=== PATIENT | male | born 1935 | race Hispanic/Latino ===

== ENCOUNTER → 2017-11-20 | Outpatient (CLI) | payer OTHER ==
[~2017-11-20] MED LIST: CHOL200012 PO; CYAN10009 PO; DOXA8TAB81 PO; DULO60CA63 PO; FOLI1TAB15 PO; GABA-529 PO; IRON150C5 PO; ISOS60TA4 PO; LOSA100T20 PO; METO100T14 PO; PANT40TA25 PO; PRAV40TA PO; RIVA20TA PO; SAXA1TBM2 PO
== END | disposition home or self-care (01) ==
LOC: SHCH 13:24
PROVIDERS: ATTEND Internal Medicine Cardiovascular Disease
DX: I87.2 Venous insufficiency (chronic) (peripheral) (principal); I73.9 Peripheral vascular disease, unspecified
CPT/HCPCS: 93925; 93970

== ENCOUNTER → 2018-08-11 | Outpatient (CLI) | payer OTHER ==
[~2018-08-11] MED LIST changes: -LOSA100T20 PO; +LOSA100T58 PO
== END | disposition home or self-care (01) ==
LOC: OIH 14:20
PROVIDERS: ATTEND Family Medicine
DX: M47.816 Spondylosis without myelopathy or radiculopathy, lumbar region (principal); M41.86 Other forms of scoliosis, lumbar region; M25.78 Osteophyte, vertebrae
CPT/HCPCS: 72100

== ENCOUNTER → 2018-08-25 | Outpatient (CLI) | payer OTHER | END | disposition home or self-care (01) | LOC: RAH 09:18 | PROVIDERS: ATTEND Family Medicine | DX: N32.89 Other specified disorders of bladder (principal); Q63.1 Lobulated, fused and horseshoe kidney; I12.9 Hypertensive chronic kidney disease with stage 1 through stage 4 chronic kidney disease, or unspecified chronic kidney disease; E11.22 Type 2 diabetes mellitus with diabetic chronic kidney disease; N18.3 Chronic kidney disease, stage 3 (moderate) | CPT/HCPCS: 76770 ==

== ENCOUNTER → 2019-01-18 | Outpatient (CLI) | payer OTHER ==
[~2019-01-18] MED LIST changes: +CYAN-52 PO; -CYAN10009 PO; -DULO60CA63 PO; +DULO60CA64 PO
== END | disposition home or self-care (01) ==
LOC: SHCH 13:42
PROVIDERS: ATTEND Internal Medicine Cardiovascular Disease
DX: Z09 Encounter for follow-up examination after completed treatment for conditions other than malignant neoplasm (principal); I82.432 Acute embolism and thrombosis of left popliteal vein; I82.411 Acute embolism and thrombosis of right femoral vein
CPT/HCPCS: 93971

== ENCOUNTER → 2019-01-25 | Outpatient (CLI) | payer OTHER | END | disposition home or self-care (01) | LOC: SHCH 12:54 | PROVIDERS: ATTEND Internal Medicine Cardiovascular Disease | DX: I82.812 Embolism and thrombosis of superficial veins of left lower extremity (principal) | CPT/HCPCS: 93971 ==

== ENCOUNTER 2020-02-07 15:37 | Inpatient (IN) | payer OTHER ==
[~2020-02-07] VITALS: Ht 170.2 cm; Wt 89.9 kg
[~2020-02-07 15:37] MED LIST changes: -PANT40TA25 PO; +PANT40TA54 PO
[2020-02-07 16:09] LABS: BASOPHILS % (AUTO) 0.6 % (0.0-5.0); EOSINOPHILS % (AUTO) 2.3 % (0.0-8.0); HEMATOCRIT 35.5 % (42-54); LYMPHOCYTES % (AUTO) 18.9 % (21.0-51.0); MEAN CORPUSCULAR HEMOGLOBIN 32.3 pg (27.0-33.0); MEAN CORPUSCULAR HGB CONC 33.8 g/dL (32.0-36.0); MEAN CORPUSCULAR VOLUME 95.7 fL (79-99); MONOCYTES % (AUTO) 9.5 % (3.0-13.0); NEUTROPHILS % (AUTO) 68.2 % (40.0-77.0); PLATELET COUNT (AUTO) 158 K/uL (130-400); RED BLOOD CELL COUNT(AUTO) 3.71 MIL/uL (4.50-6.20); RED CELL DISTRIBUTION WIDTH 12.8 % (11.0-15.5); WHITE BLOOD COUNT (AUTO) 10.1 K/uL (4.8-10.8)
[2020-02-07 16:15] LABS: INR 1.38 (0.85-1.15); PARTIAL THROMBOPLASTIN TIME 32.4 SEC (26.3-35.5); PROTHROMBIN TIME 14.7 SEC (9.6-11.6)
[2020-02-07 16:49] LABS: CREATININE 1.5 mg/dL (0.5-1.5); POTASSIUM 4.1 mmol/L (3.5-5.1)
[2020-02-07 16:53] LABS: ALBUMIN 3.4 g/dL (3.5-5.0); BILIRUBIN,TOTAL 0.6 mg/dL (0.2-1.0); CRP QUANTITATIVE 10.3 mg/L (0.00-9.0); MAGNESIUM 1.5 mg/dL (1.80-2.40)
[2020-02-07] MEDS ORDERED: ACETAMINOPHEN 325 MG TAB PO PRN ×2 (19:30)
[2020-02-07] MEDS ORDERED: ONDANSETRON HCL 4 MG/2 ML VIAL IV PRN (19:30)
[2020-02-07] MEDS ORDERED: LACTULOSE 20 GM/30 ML UDCUP PO PRN (19:30)
[2020-02-07 20:24] LABS: HEMOGLOBIN A1C 5.9 % (4.0-6.0)
[2020-02-07 20:35] LABS: THYROID STIMULATING HORMONE 1.9 uIU/mL (0.36-3.74)
[2020-02-07] MEDS: INSULIN HUMULIN R 100 UNIT/ML 3ML SQ SCH (21:00)
[2020-02-07] MEDS ORDERED: FAMOTIDINE 20MG TAB 20 MG TAB ONE (22:13)
[2020-02-07 22:50] VITALS: BP 190/86
[2020-02-07 23:19] LABS: APPEARANCE,URINE Clear (CLEAR); BILIRUBIN,URINE Negative (NEGATIVE); COLOR,URINE Yellow (YELLOW); GLUCOSE, URINE (UA) Negative (NEGATIVE); KETONES,URINE Negative (NEGATIVE); LEUKOCYTE ESTERASE ,URINE Negative (NEGATIVE); NITRATE,URINE Negative (NEGATIVE); OCCULT BLOOD,URINE Negative (NEGATIVE); PH,URINE 5.5 (5.0-8.0); PROTEIN,URINE POS 1+ mg/dL (NEGATIVE); UROBILINOGEN,URINE 0.2 mg/dL (0.2-1.0)
[2020-02-07] MEDS ORDERED: MULT-1258 PO (23:26)
[2020-02-07] MEDS ORDERED: CHOL100044 PO (23:26)
[2020-02-07] MEDS ORDERED: ACET325C6 PO (23:26)
[2020-02-07] MEDS ORDERED: LINA1TAB5 PO (23:27)
[2020-02-07 23:35] LABS: RBC,URINE 0-1 /HPF (0-1); WBC,URINE 0-1 /HPF (0-1)
[2020-02-07 23:36] LABS: BACTERIA,URINE None Seen /HPF (None Seen)
[2020-02-08] VITALS (9 sets, daily range): BP systolic 118–197; BP diastolic 52–89
[2020-02-08] MEDS ORDERED: LOSARTAN 100 MG TABLET ONE (04:16)
[2020-02-08] MEDS: LOSARTAN 100 MG TABLET PO SCH (04:17)
[2020-02-08] MEDS: INSULIN HUMULIN R 100 UNIT/ML 3ML SQ SCH ×4 (05:32→20:39)
[2020-02-08] MEDS: FAMOTIDINE 20MG TAB 20 MG TAB PO SCH (08:27)
[2020-02-08] MEDS: ISOSORBIDE MONO 60 MG TAB.SR PO SCH (08:28)
[2020-02-08] MEDS: RIVAROXABAN 20 MG TABLET PO SCH (08:28)
[2020-02-08] MEDS: METOPROLOL TARTRATE 50 MG TAB PO SCH ×2 (08:28→21:48)
[2020-02-08] MEDS: DOXAZOSIN MESYLATE 2 MG TABLET PO SCH (08:28)
[2020-02-08] MEDS: ASPIRIN 81MG TAB.CHEW PO SCH (08:29)
[2020-02-08] MEDS: DULOXETINE HCL 30 MG CAP PO SCH (08:29)
[2020-02-08] MEDS: GABAPENTIN 100 MG CAPSULE PO SCH ×3 (08:29→21:47)
[2020-02-08] MEDS: **HM** PRAVASTATIN 40MG PO SCH (08:30)
[2020-02-08] MEDS: VIT D3 PO SCH (08:30)
[2020-02-08] MEDS ORDERED: ENOXAPARIN SODIUM 30 MG/0.3 ML SQ SCH (09:00)
--- NOTE | 2020-02-08 11:42 | NUR ---
DCP CM met with pt and spouse in room discussed dc plans. Pt is independent prior to admission, lives at home with spous, daughter lives close by. Denies any equipment/services. Feels safe to go back home, spouse and daughter able to assist with transportation and needs as necessary. DC plan to home once stable. CM to continue to follow up. Addendum: 02/08/20 at 1144 by KIMBERLY RASHEED LVN CM Amended: Links added.
[2020-02-08] MEDS: MAGNESIUM 2GM PREMIX 50ML 50 ML IV PRN (14:10)
[2020-02-08] MEDS ORDERED: HYDRALAZINE HCL 25 MG TABLET PO SCH (16:00)
--- NOTE | 2020-02-08 16:06 | NUR ---
2119 patient signed IM Letter, I faxed IM Letter to [phone] and placed in chart under consent tab
[2020-02-08] MEDS: SODIUM CHLORIDE 0.9% 1000ML 1,000 ML IV SCH (21:48)
[2020-02-09] VITALS (17 sets, daily range): BP systolic 104–206; BP diastolic 44–98
--- NOTE | 2020-02-09 02:36 | NUR ---
0204: Patient asleep, dye lab technician. Jessenia called stated patient's heart rate dropping to the 30-40, not sustaining. She stated it also looks like the patient has converted from a 1 st degree block to a 2nd degree block Type II.I checked on patient, checked apical pulse while asleep for a complete minute at 50. Went ahead and paged Paulo BATES via answering service. 0205: Steven BATES returned the call informed her of above, stated to let the rolled gold plater know in the morning and for the critical care doctor to be consulted right now. Orders to change out the telemetry box has not been working. 0230: Vital signs lying 141/52, hr 59, 02 sat at 91 room air, sitting 174/74, hr 62, 02 sat at 95%, and standing up 172/75, hr of 65 02 sat at 96 % room air. Patient remains without any chest pain, dizziness, no fainting spells. Patient denies any discomfort. Jessenia dye lab technician called, stated patient is still having some 2nd degree Type II block. 0230: Paulo BATES called and informed of above, orders received to transfer to ICU and consult critical care. ERICK locomotive observer made aware, she stated she would get to me with a room. Patient remains asymptomatic. Patient made aware of changes, informed would be transferred to ICU. Patient verbalized understanding.
--- NOTE | 2020-02-09 04:46 | NUR ---
0440: Patient continued asymptomatic, checked on frequently, b/p at this time at 100/51, hr at 63 and 02 sat at 94%. Patient easily arousal, denies any discomfort. No distress noted, skin warm dry to touch, no change in assessment since beginning of shift. Telma RN in ICU called report after receiving room number from Gem [facility]. Telma RN given reason for patient's admission, how his reading went from 1 st degree block to 2nd degree type II block. Last vital signs given, informed her would be transferring him now, room 220. Patient transferred via bed, no complaints offered. 0445: I called patient's daughter Meredith at [phone], no response, so left a message to please call back and my work cell number given.
--- NOTE | 2020-02-09 05:00 | NUR ---
Received from room 403 due to decreased HR in the 30's and 40's. Patient currently Oriented X 4. HR 68 in 1st degree block. No c/o chest pain, SOB, or dizziness voiced at this time. B/P elevated at this time with systolic BPs in 200's. Patient states "I am just confused I was doing okay and now I am here." Patient appears anxious at this time. Respiration even and unlaored. No acute distress noted. Will contiune to monitor closely. Addendum: 02/09/20 at 0540 by KRISTINA TODD RN RN Amended: Links added.
[2020-02-09] MEDS: INSULIN HUMULIN R 100 UNIT/ML 3ML SQ SCH ×4 (06:20→21:29)
[2020-02-09 06:25] LABS: BASOPHILS % (AUTO) 0.3 % (0.0-5.0); EOSINOPHILS % (AUTO) 3.4 % (0.0-8.0); HEMATOCRIT 37.4 % (42-54); LYMPHOCYTES % (AUTO) 19.5 % (21.0-51.0); MEAN CORPUSCULAR HEMOGLOBIN 31.4 pg (27.0-33.0); MEAN CORPUSCULAR HGB CONC 33.2 g/dL (32.0-36.0); MEAN CORPUSCULAR VOLUME 94.7 fL (79-99); MONOCYTES % (AUTO) 9.7 % (3.0-13.0); NEUTROPHILS % (AUTO) 66.7 % (40.0-77.0); PLATELET COUNT (AUTO) 156 K/uL (130-400); RED BLOOD CELL COUNT(AUTO) 3.95 MIL/uL (4.50-6.20); RED CELL DISTRIBUTION WIDTH 12.8 % (11.0-15.5); WHITE BLOOD COUNT (AUTO) 9.1 K/uL (4.8-10.8)
[2020-02-09 06:32] LABS: CREATININE 1.2 mg/dL (0.5-1.5); MAGNESIUM 1.7 mg/dL (1.80-2.40); POTASSIUM 3.7 mmol/L (3.5-5.1)
[2020-02-09] MEDS: MAGNESIUM 2GM PREMIX 50ML 50 ML IV PRN (07:06)
[2020-02-09] MEDS: RIVAROXABAN 20 MG TABLET PO SCH (07:15)
[2020-02-09] MEDS: ISOSORBIDE MONO 60 MG TAB.SR PO SCH (07:15)
[2020-02-09] MEDS: GABAPENTIN 100 MG CAPSULE PO SCH ×3 (07:16→21:26)
[2020-02-09] MEDS: DOXAZOSIN MESYLATE 2 MG TABLET PO SCH (07:16)
[2020-02-09] MEDS: ASPIRIN 81MG TAB.CHEW PO SCH (07:17)
[2020-02-09] MEDS: DULOXETINE HCL 30 MG CAP PO SCH (07:17)
[2020-02-09] MEDS: LOSARTAN 100 MG TABLET PO SCH (07:17)
[2020-02-09] MEDS: FAMOTIDINE 20MG TAB 20 MG TAB PO SCH (07:19)
[2020-02-09] MEDS: METOPROLOL TARTRATE 50 MG TAB PO SCH (07:46)
[2020-02-09] MEDS: AMLODIPINE BESYLATE 5 MG TAB PO SCH (08:32)
[2020-02-09] MEDS: VIT D3 PO SCH (09:00)
[2020-02-09] MEDS: **HM** PRAVASTATIN 40MG PO SCH (09:00)
[2020-02-09] MEDS ORDERED: MAGNESIUM 2GM PREMIX 50ML 50 ML IV ONE (09:00)
[2020-02-09] MEDS ORDERED: POTASSIUM CHLORIDE 10MEQ/100ML 10 MEQ/100 ML ML IV SCH (09:00)
[2020-02-09] MEDS ORDERED: POTASSIUM CHLORIDE 10MEQ/100ML 100 ML IV SCH (09:15)
[2020-02-09] MEDS ORDERED: MAGNESIUM 2GM PREMIX 50ML 50 ML IV SCH (09:15)
[2020-02-09] MEDS: HYDRALAZINE HCL 25 MG TABLET PO SCH ×3 (09:50→21:26)
[2020-02-09] MEDS: HYDROCHLOROTHIAZIDE 25 MG TABLET PO SCH (09:51)
[2020-02-09] MEDS: POTASSIUM CHLORIDE 10% ELIXIR 20 MEQ/15 ML UDCUP PO SCH (09:51)
[2020-02-09] MEDS: MAGNESIUM CHLORIDE 70 MG TABLET.SA PO SCH (09:51)
[2020-02-09] MEDS: SODIUM CHLORIDE 0.9% 1000ML 1,000 ML IV SCH (10:20)
[2020-02-09] MEDS: ENOXAPARIN SODIUM 100 MG/1 ML SQ SCH (14:00)
--- NOTE | 2020-02-09 18:45 | NUR ---
REPORT RECEIVED 4047 RECEIVED REPORT PATIENT ALERT AND ORIENTATED X 4 , TRANSFERRED TO ICU FOR 1ST DEGREE BLOCK DEGREE BLOCK A1C 5.9, BLOOD SUGARS AC & HS K+ 3.7 REPLACED TODAY, MAG 1.7 REPLACEMENT GIVEN TODAY, LBM 02/09/20, VOID BY URINAL , TELEMETRY, 18 G TO R F/A AND 20 G TO LEFT HAND INTACT AND PATENT, CAME TO HOSPITAL FOR SYNCOPE , ORDERS FOR ORTHOSTATIC VS EVERY SHIFT, CC DIET , PATINE IN ROOM AT BEDSIDE
[2020-02-09] MEDS: METOPROLOL TARTRATE 25 MG TAB PO SCH (21:25)
[2020-02-10 03:22] VITALS: BP 169/70
[2020-02-10 03:33] VITALS: BP 164/79
[2020-02-10 03:34] VITALS: BP 164/72
[2020-02-10 05:18] LABS: BASOPHILS % (AUTO) 0.5 % (0.0-5.0); EOSINOPHILS % (AUTO) 4.1 % (0.0-8.0); HEMATOCRIT 36.6 % (42-54); LYMPHOCYTES % (AUTO) 28.1 % (21.0-51.0); MEAN CORPUSCULAR HGB CONC 33.3 g/dL (32.0-36.0); MEAN CORPUSCULAR VOLUME 96.1 fL (79-99); MONOCYTES % (AUTO) 12.9 % (3.0-13.0); NEUTROPHILS % (AUTO) 54.1 % (40.0-77.0); PLATELET COUNT (AUTO) 156 K/uL (130-400); RED BLOOD CELL COUNT(AUTO) 3.81 MIL/uL (4.50-6.20); RED CELL DISTRIBUTION WIDTH 13.1 % (11.0-15.5); WHITE BLOOD COUNT (AUTO) 8.6 K/uL (4.8-10.8)
[2020-02-10] MEDS: INSULIN HUMULIN R 100 UNIT/ML 3ML SQ SCH ×2 (05:34→10:59)
[2020-02-10 05:40] LABS: ALBUMIN 3.3 g/dL (3.5-5.0); BILIRUBIN,TOTAL 0.7 mg/dL (0.2-1.0); CREATININE 1.4 mg/dL (0.5-1.5); MAGNESIUM 2.4 mg/dL (1.80-2.40); PHOSPHORUS 3.8 mg/dL (2.5-4.9); POTASSIUM 4.2 mmol/L (3.5-5.1); TOTAL PROTEIN, SERUM 6.9 g/dL (6.0-8.3)
[2020-02-10 07:54] VITALS: BP 183/71
[2020-02-10] MEDS: DOXAZOSIN MESYLATE 2 MG TABLET PO SCH (08:05)
[2020-02-10] MEDS: HYDROCHLOROTHIAZIDE 25 MG TABLET PO SCH (08:05)
[2020-02-10] MEDS: METOPROLOL TARTRATE 25 MG TAB PO SCH (08:05)
[2020-02-10] MEDS: AMLODIPINE BESYLATE 5 MG TAB PO SCH (08:05)
[2020-02-10] MEDS: LOSARTAN 100 MG TABLET PO SCH (08:12)
[2020-02-10] MEDS: HYDRALAZINE HCL 25 MG TABLET PO SCH ×2 (08:13→13:31)
[2020-02-10] MEDS: ISOSORBIDE MONO 60 MG TAB.SR PO SCH (08:13)
--- NOTE | 2020-02-10 08:15 | NUR ---
AM ASSESSMENT PT LAYING IN BED, WATCHING TV. A/O X 3. NO SOB. NO DISTRESS NOTED. DENIES CHEST PAIN OR DISCOMFORT. DENIES PALPITATIONS. TELE: 1sr DEGREE. DENIES N/V AND/OR DIARRHEA. NPO STATUS REINFORCED. PT TO HAVE JENA SCAN TODAY. UP W/ASSISTANCE. INSTRUCTED TO CALL FOR ASSISTANCE. CALL DEDE W/IN REACH.
[2020-02-10 09:30] VITALS: BP 147/67
[2020-02-10] MEDS ORDERED: REGADENOSON 0.4 MG/5 ML PF SYG IVP SCH (11:15)
[2020-02-10] MEDS: ENOXAPARIN SODIUM 100 MG/1 ML SQ SCH (13:07)
[2020-02-10] MEDS: ASPIRIN 81MG TAB.CHEW PO SCH (13:12)
[2020-02-10] MEDS: DULOXETINE HCL 30 MG CAP PO SCH (13:12)
[2020-02-10] MEDS: GABAPENTIN 100 MG CAPSULE PO SCH ×2 (13:12→13:35)
[2020-02-10] MEDS: FAMOTIDINE 20MG TAB 20 MG TAB PO SCH (13:13)
[2020-02-10] MEDS: MAGNESIUM CHLORIDE 70 MG TABLET.SA PO SCH (13:13)
[2020-02-10] MEDS: POTASSIUM CHLORIDE 10% ELIXIR 20 MEQ/15 ML UDCUP PO SCH (13:14)
[2020-02-10] MEDS: VIT D3 PO SCH (13:15)
[2020-02-10] MEDS: **HM** PRAVASTATIN 40MG PO SCH (13:15)
[2020-02-10 15:21] VITALS: BP 133/56
--- NOTE | 2020-02-10 16:18 | NUR ---
MD VISIT DR PATRICIA ISAACS IN TO SEE PT. PT & SPOUSE UPDATED ON PT'S JENA SCAN RESULTS & CARDIOLOGY'S PLAN OF CARE.
--- NOTE | 2020-02-10 16:26 | NUR ---
MD MISSAEL LEMUS REAL ESTATE LEGAL ASSISTANT NOTIFIED, PER DR PATRICIA BELLA SCAN NORMAL & MAY DISCHARGE PT HOME TODAY. PT'S HOME DOSE OF METOPROLOL DECREASED TO50 MG PO BID, PRESCRIPTION WRITTEN BY DR PATRICIA ISAACS. PT TO F/U IN [facility].
--- NOTE | 2020-02-10 17:50 | NUR ---
DISCHARGE VERBAL & WRITTEN DISCHARGE INSTRUCTIONS REVIEWED & GIVEN TO PT & PT'S SPOUSE. QUESTIONS ENCOURAGED CLARIFIED. PROPER CARE & MGT OF SYNCOPE REVIEWED. DOSING CHANGE IN MEDICATION REVIEWED. PRESCRIPTION GIVEN TO PT; SIGNED COPY PLACED IN CHART. PT INFORMED [facility] TO NOTIFY PT WHEN TO [employer]CE[employer] FREIGHT MANAGER HOLTER MONITOR FROM OFFICE [facility]. TELE TEN REMOVED. IV X 2 DC'D @ THIS TIME. PT & SPOUSE TO GATHER PERSONAL BELONGINGS. WILL NOTIFY STAFF WHEN READY TO BE TAKEN TO PRIVATE VEHICLE.
--- NOTE | 2020-02-10 18:15 | NUR ---
DISCHARGE PT TAKEN TO PRIVATE VEHICLE VIA WC BY Qamar WOODS PCP, ACCOMPANIED BY SPOUSE. NO DISTRESS NOTED.
--- NOTE | 2020-02-11 13:09 | NUR ---
TRANSITIONAL CARE - POST-DISCHARGE NOTE Spoke to Mr Sheth at phone number listed on file. As per patient, he states he is doing "good." He denies, any syncopal episodes, SOB, CP, N/V/D, fevers/chills, or generalized pain. He mentions he is continuing on his home medications as ordered. Patient stated, he had yet to receive a phone call from [facility] for holter. I called [facility], and they had no order received from Dr Mack Murillo for a holter monitor, but he did state in his note that the patient would be discharged and his office would call patient for monitor. Office staff assured me they would pull the physician's note from the system, and begin the process of attaining the holter monitor for Mr Sheth. The office staff also stated they would call Mr Sheth to pickling operator holter once the insurance approves the monitor. Addendum: 02/11/20 at 1316 by MACK MCGUIRE Amended: Links added.
== END 2020-02-10 17:00 | disposition home or self-care (01) | DRG 309 ==
LOC: EDH 15:37 → EDHIP 19:17 → OBSVTOIN 19:17 → 4AH 23:01 → 2DH 02-09 05:11 → 4CH 02-09 18:48
PROVIDERS: ADMIT Internal Medicine; ATTEND Internal Medicine
DX: I49.9 Cardiac arrhythmia, unspecified (principal); R47.01 Aphasia; I44.1 Atrioventricular block, second degree; E11.21 Type 2 diabetes mellitus with diabetic nephropathy; E11.22 Type 2 diabetes mellitus with diabetic chronic kidney disease; E11.40 Type 2 diabetes mellitus with diabetic neuropathy, unspecified; F32.9 Major depressive disorder, single episode, unspecified; I87.2 Venous insufficiency (chronic) (peripheral); E78.5 Hyperlipidemia, unspecified; H53.8 Other visual disturbances; E83.42 Hypomagnesemia; E87.6 Hypokalemia; I16.0 Hypertensive urgency; D50.9 Iron deficiency anemia, unspecified; E66.9 Obesity, unspecified; Z83.3 Family history of diabetes mellitus; I44.0 Atrioventricular block, first degree; Z82.49 Family history of ischemic heart disease and other diseases of the circulatory system; Z88.8 Allergy status to other drugs, medicaments and biological substances; N18.32 Chronic kidney disease, stage 3b; I12.9 Hypertensive chronic kidney disease with stage 1 through stage 4 chronic kidney disease, or unspecified chronic kidney disease; G47.30 Sleep apnea, unspecified; I95.1 Orthostatic hypotension; Z88.6 Allergy status to analgesic agent; Z86.718 Personal history of other venous thrombosis and embolism; Z79.01 Long term (current) use of anticoagulants; Z68.31 Body mass index [BMI] 31.0-31.9, adult
CPT/HCPCS: 36415; 70450; 70551; 71045; 78452; 80048; 80053; 80061; 81001; 82550; 82948; 83036; 83735; 84100; 84443; 84484; 85025; 85610; 85730; 86140; 93005; 93017; 93306; 93356; 93880; 96374; 97039; A9500; G0378; J1650; J1815; J2785; J3475; J7030

== ENCOUNTER → 2020-05-20 | Outpatient (CLI) | payer MEDICARE ==
[~2020-05-20] MED LIST changes: +ACET325C6 PO; +CHOL100044 PO; -CHOL200012 PO; -ISOS60TA4 PO; +ISOS60TA77 PO; +LINA1TAB5 PO; +MULT-1258 PO; -SAXA1TBM2 PO
== END | disposition home or self-care (01) ==
LOC: SLP 20:25
PROVIDERS: ATTEND Internal Medicine Cardiovascular Disease
DX: G47.33 Obstructive sleep apnea (adult) (pediatric) (principal)
CPT/HCPCS: 95810

== ENCOUNTER → 2020-06-23 | Outpatient (CLI) | payer MEDICARE | END | disposition home or self-care (01) | LOC: SLP 20:31 | PROVIDERS: ATTEND Internal Medicine Cardiovascular Disease | DX: G47.33 Obstructive sleep apnea (adult) (pediatric) (principal) | CPT/HCPCS: 95811 ==

== ENCOUNTER 2021-01-19 07:49 | Day surgery (SDC) | payer MEDICARE ==
[2021-01-17 10:45] LABS: BASOPHILS % (AUTO) 0.7 % (0.0-5.0); EOSINOPHILS % (AUTO) 3.8 % (0.0-8.0); HEMATOCRIT 36.7 % (42-54); LYMPHOCYTES % (AUTO) 27.6 % (21.0-51.0); MEAN CORPUSCULAR HEMOGLOBIN 30.9 pg (27.0-33.0); MEAN CORPUSCULAR VOLUME 93.9 fL (79-99); MONOCYTES % (AUTO) 10.6 % (3.0-13.0); NEUTROPHILS % (AUTO) 56.7 % (40.0-77.0); PLATELET COUNT (AUTO) 188 K/uL (130-400); RED BLOOD CELL COUNT(AUTO) 3.91 MIL/uL (4.50-6.20); RED CELL DISTRIBUTION WIDTH 14.3 % (11.0-15.5); WHITE BLOOD COUNT (AUTO) 7.1 K/uL (4.8-10.8)
[2021-01-17 10:54] LABS: CREATININE 1.2 mg/dL (0.5-1.5); POTASSIUM 4.5 mmol/L (3.5-5.1)
[2021-01-17 11:03] LABS: INR 1.09 (0.85-1.15); PROTHROMBIN TIME 11.8 SEC (9.6-11.6)
[2021-01-17 11:04] LABS: PARTIAL THROMBOPLASTIN TIME 27.9 SEC (26.3-35.5)
[2021-01-18 09:35] VITALS: BP 158/73
[2021-01-19] VITALS (10 sets, daily range): BP systolic 145–187; BP diastolic 61–81
[~2021-01-19] VITALS: Ht 170.2 cm; Wt 87.2 kg
[~2021-01-19 07:49] MED LIST changes: -ACET325C6 PO; +AMLO-257 PO; +CA C1TAB74 PO; +CEFAZOLIN SODIUM 1 GM VIAL IVP SCH; +CHLO25TA3 PO; -CHOL100044 PO; -IRON150C5 PO; -LINA1TAB5 PO; +METF-446 PO; -METO100T14 PO
[2021-01-19] MEDS ORDERED: 0.9%NACL 1000ML 1,000 ML IV ONE (08:04)
[2021-01-19] MEDS ORDERED: BUPIVACAINE/PF 0.25% 30ML VIAL IJ ONE (11:10)
[2021-01-19] MEDS ORDERED: FENTANYL CITRATE PF 50 MCG/1 ML 2ML VIAL ONE (11:10)
[2021-01-19] MEDS ORDERED: MIDAZOLAM HCL 1 MG/ML 2ML VIAL ONE ×2 (11:10→11:27)
[2021-01-19] MEDS ORDERED: LIDOCAINE HCL 1% MDV 50ML VIAL ONE (11:10)
[2021-01-19] MEDS ORDERED: ACETAMINOPHEN WITH CODEINE 1 TAB TAB ONE (14:13)
[2021-01-19] MEDS ORDERED: ACETAMINOPHEN WITH CODEINE 1 TAB TAB PO SCH (14:30)
== END 2021-01-19 17:05 | disposition home or self-care (01) ==
LOC: DAH 07:49
PROVIDERS: ATTEND Internal Medicine Cardiovascular Disease
DX: I49.5 Sick sinus syndrome (principal); Z20.822 Contact with and (suspected) exposure to COVID-19; I44.0 Atrioventricular block, first degree; I47.1 Supraventricular tachycardia; I10 Essential (primary) hypertension; E11.9 Type 2 diabetes mellitus without complications; E78.5 Hyperlipidemia, unspecified; I87.2 Venous insufficiency (chronic) (peripheral); G47.33 Obstructive sleep apnea (adult) (pediatric); Z86.718 Personal history of other venous thrombosis and embolism; Z79.84 Long term (current) use of oral hypoglycemic drugs; Z83.3 Family history of diabetes mellitus; Z98.890 Other specified postprocedural states; Z79.899 Other long term (current) drug therapy; Z79.01 Long term (current) use of anticoagulants
CPT/HCPCS: 33208; 36415; 71045; 80048; 82948 ×2; 85025; 85610; 85730; 93005; A4215; A4216; A4221; A4222; A4223 ×3; A4606; A4663; C1785; C1898 ×2; J0690; J2250 ×2; J3010; J3490 ×2; J7030; 99156; 99157

== ENCOUNTER → 2021-10-18 | Outpatient (CLI) | payer MEDICARE ==
[~2021-10-18] MED LIST changes: -CEFAZOLIN SODIUM 1 GM VIAL IVP SCH
[2021-10-18 12:25] LABS: BASOPHILS % (AUTO) 0.6 % (0.0-5.0); EOSINOPHILS % (AUTO) 3.7 % (0.0-8.0); HEMATOCRIT 32.8 % (42-54); LYMPHOCYTES % (AUTO) 29.8 % (21.0-51.0); MEAN CORPUSCULAR HEMOGLOBIN 32.2 pg (27.0-33.0); MEAN CORPUSCULAR HGB CONC 33.8 g/dL (32.0-36.0); MEAN CORPUSCULAR VOLUME 95.1 fL (79-99); MONOCYTES % (AUTO) 9.6 % (3.0-13.0); NEUTROPHILS % (AUTO) 56.1 % (40.0-77.0); PLATELET COUNT (AUTO) 182 K/uL (130-400); RED BLOOD CELL COUNT(AUTO) 3.45 MIL/uL (4.50-6.20); RED CELL DISTRIBUTION WIDTH 13.3 % (11.0-15.5); WHITE BLOOD COUNT (AUTO) 8.2 K/uL (4.8-10.8)
[2021-10-18 12:29] LABS: CREATININE 1.5 mg/dL (0.5-1.5); POTASSIUM 4.5 mmol/L (3.5-5.1)
[2021-10-18 12:41] LABS: INR 1.03 (0.85-1.15); PROTHROMBIN TIME 11.2 SEC (9.6-11.6)
[2021-10-18 12:42] LABS: PARTIAL THROMBOPLASTIN TIME 27.7 SEC (26.3-35.5)
== END | disposition home or self-care (01) ==
LOC: LAB 10:10
PROVIDERS: ATTEND Internal Medicine Cardiovascular Disease
DX: I87.1 Compression of vein (principal); I65.23 Occlusion and stenosis of bilateral carotid arteries
CPT/HCPCS: 36415; 80048; 85025; 85610; 85730

== ENCOUNTER → 2022-04-29 | Outpatient (CLI) | payer MEDICARE | END | disposition home or self-care (01) | LOC: SHCH 13:10 | PROVIDERS: ATTEND Internal Medicine Cardiovascular Disease | DX: I08.0 Rheumatic disorders of both mitral and aortic valves (principal); I11.9 Hypertensive heart disease without heart failure; E11.9 Type 2 diabetes mellitus without complications; E78.5 Hyperlipidemia, unspecified; Z95.0 Presence of cardiac pacemaker | CPT/HCPCS: 93306 ==

== ENCOUNTER 2022-05-04 07:30 | Emergency (ER) | payer MEDICARE ==
[~2022-05-04] VITALS: Ht 170.2 cm; Wt 88.9 kg
[2022-05-04 08:05] LABS: BASOPHILS % (AUTO) 0.3 % (0.0-5.0); HEMATOCRIT 30.4 % (42-54); LYMPHOCYTES % (AUTO) 21.7 % (21.0-51.0); MEAN CORPUSCULAR HEMOGLOBIN 31.8 pg (27.0-33.0); MEAN CORPUSCULAR HGB CONC 34.2 g/dL (32.0-36.0); MONOCYTES % (AUTO) 10.6 % (3.0-13.0); NEUTROPHILS % (AUTO) 64.8 % (40.0-77.0); PLATELET COUNT (AUTO) 196 K/uL (130-400); RED BLOOD CELL COUNT(AUTO) 3.27 MIL/uL (4.50-6.20); RED CELL DISTRIBUTION WIDTH 12.8 % (11.0-15.5)
[2022-05-04 08:28] LABS: INR 1.15 (0.85-1.15); PROTHROMBIN TIME 12.4 SEC (9.6-11.6)
[2022-05-04 08:29] LABS: PARTIAL THROMBOPLASTIN TIME 32.4 SEC (26.3-35.5)
[2022-05-04 08:32] LABS: B-TYPE NATRIURETIC PEPTIDE 173 pg/mL (0-100)
[2022-05-04 09:42] LABS: APPEARANCE,URINE CLEAR (CLEAR); BILIRUBIN,URINE NEGATIVE (NEGATIVE); COLOR,URINE LIGHT-YELLOW (YELLOW); GLUCOSE, URINE (UA) NEGATIVE (NEGATIVE); KETONES,URINE NEGATIVE (NEGATIVE); LEUKOCYTE ESTERASE ,URINE NEGATIVE Leu/uL (NEGATIVE); NITRATE,URINE NEGATIVE (NEGATIVE); OCCULT BLOOD,URINE NEGATIVE (NEGATIVE); PROTEIN,URINE 20 mg/dL (NEGATIVE); UROBILINOGEN,URINE 0.2 mg/dL (0.2-1.0)
[2022-05-04 09:48] LABS: ALBUMIN 3.6 g/dL (3.5-5.0); CREATININE 1.5 mg/dL (0.5-1.5); POTASSIUM 4.2 mmol/L (3.5-5.1); TOTAL PROTEIN, SERUM 6.8 g/dL (6.0-8.3)
[2022-05-04 11:08] VITALS: BP 162/78
[2022-05-04 11:34] LABS: WBC,URINE 0-1 /HPF (0-1)
== END 2022-05-04 11:24 | disposition home or self-care (01) ==
LOC: EDH 07:30
DX: S00.03XA Contusion of scalp, initial encounter (principal); I13.0 Hypertensive heart and chronic kidney disease with heart failure and stage 1 through stage 4 chronic kidney disease, or unspecified chronic kidney disease; N18.9 Chronic kidney disease, unspecified; E11.22 Type 2 diabetes mellitus with diabetic chronic kidney disease; E78.5 Hyperlipidemia, unspecified; I25.10 Atherosclerotic heart disease of native coronary artery without angina pectoris; J44.9 Chronic obstructive pulmonary disease, unspecified; Z79.84 Long term (current) use of oral hypoglycemic drugs; Z79.899 Other long term (current) drug therapy; Z88.5 Allergy status to narcotic agent; Z88.8 Allergy status to other drugs, medicaments and biological substances; Z95.0 Presence of cardiac pacemaker; W19.XXXA Unspecified fall, initial encounter; Y93.89 Activity, other specified; Y92.031 Bathroom in apartment as the place of occurrence of the external cause; Y99.8 Other external cause status
CPT/HCPCS: 36415; 70450; 71045; 72125; 80053; 81001; 83880; 84484; 85025; 85610; 85730; 93005

== ENCOUNTER → 2022-06-05 | Outpatient (CLI) | payer MEDICARE ==
[2022-06-05 12:23] LABS: CREATININE 1.2 mg/dL (0.5-1.5); POTASSIUM 4.5 mmol/L (3.5-5.1)
== END | disposition home or self-care (01) ==
LOC: LAB 10:33
PROVIDERS: ATTEND Internal Medicine Cardiovascular Disease
DX: I87.1 Compression of vein (principal); I48.91 Unspecified atrial fibrillation; I10 Essential (primary) hypertension
CPT/HCPCS: 36415; 80048; 83880

== ENCOUNTER → 2022-08-02 | Outpatient (CLI) | payer MEDICARE ==
[~2022-08-02] MED LIST changes: -LOSA100T58 PO; +LOSA100T59 PO
[2022-08-02 15:12] LABS: BASOPHILS % (AUTO) 0.5 % (0.0-5.0); EOSINOPHILS % (AUTO) 1.8 % (0.0-8.0); HEMATOCRIT 30.1 % (42-54); LYMPHOCYTES % (AUTO) 23.2 % (21.0-51.0); MEAN CORPUSCULAR HEMOGLOBIN 30.9 pg (27.0-33.0); MEAN CORPUSCULAR HGB CONC 34.2 g/dL (32.0-36.0); MEAN CORPUSCULAR VOLUME 90.4 fL (79-99); MONOCYTES % (AUTO) 10.6 % (3.0-13.0); NEUTROPHILS % (AUTO) 63.4 % (40.0-77.0); PLATELET COUNT (AUTO) 182 K/uL (130-400); RED BLOOD CELL COUNT(AUTO) 3.33 MIL/uL (4.50-6.20); RED CELL DISTRIBUTION WIDTH 13.4 % (11.0-15.5); WHITE BLOOD COUNT (AUTO) 8.7 K/uL (4.8-10.8)
[2022-08-02 15:18] LABS: CREATININE 1.4 mg/dL (0.5-1.5); POTASSIUM 4.8 mmol/L (3.5-5.1)
[2022-08-02 15:25] LABS: INR 1.28 (0.85-1.15); PROTHROMBIN TIME 13.8 SEC (9.6-11.6)
[2022-08-02 15:27] LABS: PARTIAL THROMBOPLASTIN TIME 36.2 SEC (26.3-35.5)
== END | disposition home or self-care (01) ==
LOC: LAB 13:31
PROVIDERS: ATTEND Internal Medicine Cardiovascular Disease
DX: I10 Essential (primary) hypertension (principal); I87.1 Compression of vein; I48.91 Unspecified atrial fibrillation
CPT/HCPCS: 36415; 80048; 85025; 85610; 85730

== ENCOUNTER → 2022-08-26 | Outpatient (CLI) | payer MEDICARE | END | disposition home or self-care (01) | LOC: SHCH 14:27 | PROVIDERS: ATTEND Internal Medicine Cardiovascular Disease | DX: I87.2 Venous insufficiency (chronic) (peripheral) (principal) | CPT/HCPCS: 93970 ==

== ENCOUNTER → 2022-09-13 | Outpatient (CLI) | payer MEDICARE ==
[2022-09-13 15:09] LABS: BASOPHILS % (AUTO) 0.3 % (0.0-5.0); EOSINOPHILS % (AUTO) 2.6 % (0.0-8.0); HEMATOCRIT 30.4 % (42-54); LYMPHOCYTES % (AUTO) 23.1 % (21.0-51.0); MEAN CORPUSCULAR HEMOGLOBIN 31.6 pg (27.0-33.0); MEAN CORPUSCULAR HGB CONC 33.9 g/dL (32.0-36.0); MEAN CORPUSCULAR VOLUME 93.3 fL (79-99); MONOCYTES % (AUTO) 10.7 % (3.0-13.0); NEUTROPHILS % (AUTO) 62.9 % (40.0-77.0); PLATELET COUNT (AUTO) 172 K/uL (130-400); RED BLOOD CELL COUNT(AUTO) 3.26 MIL/uL (4.50-6.20); RED CELL DISTRIBUTION WIDTH 14.1 % (11.0-15.5); WHITE BLOOD COUNT (AUTO) 7.7 K/uL (4.8-10.8)
[2022-09-13 15:14] LABS: CREATININE 1.4 mg/dL (0.5-1.5); POTASSIUM 4.5 mmol/L (3.5-5.1)
== END | disposition home or self-care (01) ==
LOC: LAB 13:44
PROVIDERS: ATTEND Internal Medicine Cardiovascular Disease
DX: I10 Essential (primary) hypertension (principal)
CPT/HCPCS: 36415; 80048; 85025

== ENCOUNTER → 2022-10-30 | Outpatient (CLI) | payer MEDICARE ==
[2022-10-30 16:20] LABS: BASOPHILS # (AUTO) 0.03 K/uL (0.00-0.20); BASOPHILS % (AUTO) 0.4 % (0.0-5.0); EOSINOPHILS # (AUTO) 0.18 K/uL (0.00-0.70); EOSINOPHILS % (AUTO) 2.3 % (0.0-8.0); HEMATOCRIT 30.5 % (42-54); IMMATURE GRANULOCYTE ABSOLUTE 0.02 K/uL (0-1); LYMPHOCYTES # (AUTO) 2.1 K/uL (1.0-4.8); LYMPHOCYTES % (AUTO) 27.4 % (21.0-51.0); MEAN CORPUSCULAR HEMOGLOBIN 32.9 pg (27.0-33.0); MEAN CORPUSCULAR HGB CONC 34.4 g/dL (32.0-36.0); MEAN CORPUSCULAR VOLUME 95.6 fL (79-99); MONOCYTES % (AUTO) 12.3 % (3.0-13.0); NEUTROPHILS # (AUTO) 4.4 K/uL (1.8-7.7); NEUTROPHILS % (AUTO) 57.3 % (40.0-77.0); PLATELET COUNT (AUTO) 193 K/uL (130-400); RED BLOOD CELL COUNT(AUTO) 3.19 MIL/uL (4.50-6.20); RED CELL DISTRIBUTION WIDTH 14.1 % (11.0-15.5); WHITE BLOOD COUNT (AUTO) 7.7 K/uL (4.8-10.8)
[2022-10-30 16:33] LABS: INR 1.22 (0.85-1.15)
[2022-10-30 16:34] LABS: PARTIAL THROMBOPLASTIN TIME 36.4 SEC (26.3-35.5)
[2022-10-30 16:51] LABS: CREATININE 1.4 mg/dL (0.5-1.5); POTASSIUM 4.9 mmol/L (3.5-5.1)
== END | disposition home or self-care (01) ==
LOC: LAB 14:23
PROVIDERS: ATTEND Internal Medicine Cardiovascular Disease
DX: I70.209 Unspecified atherosclerosis of native arteries of extremities, unspecified extremity (principal); I48.91 Unspecified atrial fibrillation
CPT/HCPCS: 36415; 80048; 85025; 85610; 85730

== ENCOUNTER → 2023-01-10 | Outpatient (CLI) | payer MEDICARE ==
[~2023-01-10] MED LIST changes: +REGADENOSON 0.4 MG/5 ML PF SYG IVP ONE
== END | disposition home or self-care (01) ==
LOC: SHCH 08:41
PROVIDERS: ATTEND Internal Medicine Cardiovascular Disease
DX: R94.39 Abnormal result of other cardiovascular function study (principal); R06.09 Other forms of dyspnea; I51.7 Cardiomegaly; I48.91 Unspecified atrial fibrillation; Z95.0 Presence of cardiac pacemaker
CPT/HCPCS: 78452; 96374; 93017; J2785; A9500 ×2